=== PATIENT | male | born 1980 | race Hispanic/Latino ===

== ENCOUNTER 2022-09-07 19:23 | Inpatient (IN) | payer OTHER ==
[~2022-09-07] VITALS: Ht 175.3 cm; Wt 94.5 kg
[2022-09-07 19:39] LABS: BASOPHILS % (AUTO) 0.4 % (0.0-5.0); EOSINOPHILS % (AUTO) 1.6 % (0.0-8.0); HEMATOCRIT 41.1 % (42-54); LYMPHOCYTES % (AUTO) 25.8 % (21.0-51.0); MEAN CORPUSCULAR HEMOGLOBIN 31.9 pg (27.0-33.0); MEAN CORPUSCULAR HGB CONC 34.3 g/dL (32.0-36.0); NEUTROPHILS % (AUTO) 66.7 % (40.0-77.0); PLATELET COUNT (AUTO) 237 K/uL (130-400); RED BLOOD CELL COUNT(AUTO) 4.42 MIL/uL (4.50-6.20); RED CELL DISTRIBUTION WIDTH 11.6 % (11.0-15.5); WHITE BLOOD COUNT (AUTO) 9.5 K/uL (4.8-10.8)
[2022-09-07 19:47] LABS: POTASSIUM 4.4 mmol/L (3.5-5.1)
[2022-09-07 20:00] LABS: ALBUMIN 4.2 g/dL (3.5-5.0); TOTAL PROTEIN, SERUM 7.2 g/dL (6.0-8.3)
[2022-09-07] MEDS ORDERED: PANTOPRAZOLE 40 MG/VIAL IVP ONE (20:00)
[2022-09-07] MEDS ORDERED: ACETAMINOPHEN 500 MG TABLET PO ONE (20:00)
[2022-09-07 20:18] LABS: MAGNESIUM 2.1 mg/dL (1.80-2.40)
[2022-09-07] MEDS ORDERED: IOHEXOL 350 MG/ML 100ML INFUS..BTL IV ONE (21:12)
[2022-09-07] MEDS ORDERED: 0.9%NACL 1000ML 1,000 ML IV ONE (21:30)
[2022-09-07] MEDS ORDERED: DICYCLOMINE HCL 10 MG/5 ML ML PO ONE (21:30)
[2022-09-07] MEDS ORDERED: MORPHINE 4 MG SYG IVP ONE (21:30)
[2022-09-07] MEDS ORDERED: MAG/ALUM/SIMETH 30 ML UDCUP PO PRN (21:30)
[2022-09-07] MEDS ORDERED: ACETAMINOPHEN 325 MG TAB PO PRN (21:30)
[2022-09-07] MEDS ORDERED: MAG/ALUM/SIMETH 30 ML UDCUP PO ONE (21:30)
[2022-09-07] MEDS ORDERED: LIDOCAINE HCL 2% VISCOUS 15 ML UDCUP PO ONE (21:30)
[2022-09-07 21:46] LABS: CHOLESTEROL 188 mg/dL (<200); HDL CHOLESTEROL 29 mg/dL (29-71); LDL DIRECT 115 mg/dL (0-99); TRIGLYCERIDES 364 mg/dL (30-200)
[2022-09-07] MEDS: LACTATED RINGERS 1000ML 1,000 ML IV SCH (22:01)
[2022-09-08] MEDS: ONDANSETRON 4MG INJ IV PRN ×2 (00:18→05:57)
[2022-09-08] MEDS: MORPHINE 4 MG SYG IV PRN ×2 (00:19→05:49)
[2022-09-08 01:05] VITALS: BP 126/66
[2022-09-08] MEDS ORDERED: ALPRAZOLAM 0.5 MG TABLET ONE (02:12)
[2022-09-08] MEDS: MORPHINE 2 MG SYG IV PRN ×2 (02:15→14:57)
[2022-09-08 04:28] VITALS: BP 103/58
[2022-09-08] MEDS: LACTATED RINGERS 1000ML 1,000 ML IV SCH ×2 (05:58→13:30)
[2022-09-08 06:36] LABS: BASOPHILS % (AUTO) 0.5 % (0.0-5.0); EOSINOPHILS % (AUTO) 1.7 % (0.0-8.0); HEMATOCRIT 39.3 % (42-54); LYMPHOCYTES % (AUTO) 41.9 % (21.0-51.0); MEAN CORPUSCULAR HEMOGLOBIN 31.9 pg (27.0-33.0); MEAN CORPUSCULAR HGB CONC 34.4 g/dL (32.0-36.0); MEAN CORPUSCULAR VOLUME 92.9 fL (79-99); MONOCYTES % (AUTO) 6.2 % (3.0-13.0); NEUTROPHILS % (AUTO) 49.4 % (40.0-77.0); PLATELET COUNT (AUTO) 222 K/uL (130-400); RED BLOOD CELL COUNT(AUTO) 4.23 MIL/uL (4.50-6.20); RED CELL DISTRIBUTION WIDTH 11.8 % (11.0-15.5); WHITE BLOOD COUNT (AUTO) 5.9 K/uL (4.8-10.8)
[2022-09-08 07:39] LABS: CREATININE 0.9 mg/dL (0.5-1.5); PHOSPHORUS 3.2 mg/dL (2.5-4.9)
[2022-09-08] MEDS: ALPRAZOLAM 0.5 MG TABLET PO SCH ×2 (08:14→14:00)
[2022-09-08 08:17] VITALS: BP 124/58
[2022-09-08] MEDS ORDERED: FAMOTIDINE 20MG VIAL IV SCH (09:00)
[2022-09-08 11:33] VITALS: BP 115/63
[2022-09-08 16:04] VITALS: BP 127/66
== END 2022-09-08 20:44 | disposition home or self-care (01) | DRG 440 ==
LOC: EDH 19:23 → EDHIP 19:24 → 4BH 09-08 00:12
PROVIDERS: ADMIT Internal Medicine; ATTEND Internal Medicine
DX: K85.90 Acute pancreatitis without necrosis or infection, unspecified (principal); R55 Syncope and collapse; R00.1 Bradycardia, unspecified; K80.20 Calculus of gallbladder without cholecystitis without obstruction; E78.1 Pure hyperglyceridemia; Z56.0 Unemployment, unspecified
CPT/HCPCS: 36415; 71045; 74177; 80048; 80053; 80061; 83690; 83735; 84100; 84443; 84484; 85025; 93005; C9113; G0378; J2270; J2405; J3490; J7030; J7120; Q9967

== ENCOUNTER 2022-09-23 20:50 | Emergency (ER) | payer OTHER | END 2022-09-23 22:47 | disposition left against medical advice (07) | LOC: EDH 20:50 | DX: R10.9 Unspecified abdominal pain (principal); Z53.21 Procedure and treatment not carried out due to patient leaving prior to being seen by health care provider ==

== ENCOUNTER 2023-03-03 17:13 | Emergency (ER) | payer BC ==
[~2023-03-03] VITALS: Ht 175.3 cm; Wt 99.8 kg
[2023-03-03 18:08] LABS: BASOPHILS % (AUTO) 0.5 % (0.0-5.0); EOSINOPHILS % (AUTO) 2.5 % (0.0-8.0); HEMATOCRIT 40.2 % (42-54); LYMPHOCYTES % (AUTO) 29.1 % (21.0-51.0); MEAN CORPUSCULAR HEMOGLOBIN 32.1 pg (27.0-33.0); MEAN CORPUSCULAR HGB CONC 34.8 g/dL (32.0-36.0); MEAN CORPUSCULAR VOLUME 92.2 fL (79-99); MONOCYTES % (AUTO) 7.7 % (3.0-13.0); NEUTROPHILS % (AUTO) 59.9 % (40.0-77.0); PLATELET COUNT (AUTO) 242 K/uL (130-400); RED BLOOD CELL COUNT(AUTO) 4.36 MIL/uL (4.50-6.20); WHITE BLOOD COUNT (AUTO) 6.5 K/uL (4.8-10.8)
[2023-03-03 18:16] LABS: APPEARANCE,URINE CLOUDY (CLEAR); BILIRUBIN,URINE NEGATIVE (NEGATIVE); COLOR,URINE LIGHT-YELLOW (YELLOW); GLUCOSE, URINE (UA) NEGATIVE (NEGATIVE); KETONES,URINE NEGATIVE (NEGATIVE); LEUKOCYTE ESTERASE ,URINE NEGATIVE Leu/uL (NEGATIVE); NITRATE,URINE NEGATIVE (NEGATIVE); OCCULT BLOOD,URINE NEGATIVE (NEGATIVE); PH,URINE 7.5 (5.0-8.0); PROTEIN,URINE NEGATIVE (NEGATIVE); UROBILINOGEN,URINE 0.2 mg/dL (0.2-1.0)
[2023-03-03 18:29] LABS: ALBUMIN 4.2 g/dL (3.5-5.0); CREATININE 1.1 mg/dL (0.5-1.5); POTASSIUM 4.2 mmol/L (3.5-5.1)
[2023-03-03 18:40] LABS: RBC,URINE 0-1 /HPF (0-1)
[2023-03-03] MEDS ORDERED: ACETAMINOPHEN WITH CODEINE 1 TAB TAB PO ONE (19:00)
[2023-03-03] MEDS ORDERED: ACET-2079 PO (19:33)
[2023-03-03 19:37] VITALS: BP 142/76
== END 2023-03-03 19:46 | disposition home or self-care (01) ==
LOC: EDH 17:13
DX: K40.90 Unilateral inguinal hernia, without obstruction or gangrene, not specified as recurrent (principal)
CPT/HCPCS: 36415; 76882; 80053; 81001; 83690; 85025